=== PATIENT | female | born 1965 | race Hispanic/Latino ===

== ENCOUNTER 2021-09-14 22:13 | Emergency (ER) | payer BC, OTHER ==
[2021-09-14 23:07] LABS: Absolute Lymphocytes (CBC) 3.7 K/uL (0.7-4.9); Basophils % 0.5 % (0-1.3); Hematocrit 40.1 % (36.0-45.0); Lymphocytes % 29.2 % (15.3-44.8); MPV 9.5 fL (7.6-11.3); RBC Red Blood Cell Count 5.45 M/uL (3.86-4.86)
[2021-09-14 23:08] LABS: Protime INR 0.99
[2021-09-14 23:29] LABS: ALT/SGPT 40 U/L (12-78); AST/SGOT 26 U/L (15-37); Albumin 3.9 g/dL (3.4-5.0); Alkaline Phosphatase 114 U/L (45-117); BUN Blood Urea Nitrogen 14 mg/dL (7-18); Bicarbonate 25 mmol/L (21-32); Bilirubin Direct < 0.1 mg/dL (0-0.2); Bilirubin Total 0.3 mg/dL (0.2-1.0); Glucose Level 146 mg/dL (74-106); Magnesium 2.1 mg/dL (1.8-2.4); NT PRO-BNP 49 pg/mL (<125); Potassium 3.4 mmol/L (3.5-5.1); Protein, Total 8.3 g/dL (6.4-8.2); Sodium Level 142 mmol/L (136-145); Troponin (Emerg Dept Use Only) < 0.02 ng/mL (0.0-0.045)
[2021-09-15] MEDS ORDERED: ACETAMINOPHEN 500 MG TAB ONE (00:10)
--- NOTE | 2021-09-15 00:16 | EDPHYS ---
Physician Documentation [facility] Name: Jacklyn Can Age: 56 yrs Sex: Female : 1965 Arrival Date: 09/14/2021 Time: 22:15 Bed 18 Private MD: ED Physician Blake Rodgers HPI: 09/14 23:04 This 56 yrs old Female presents to ER via Ambulatory with complaints of High kb Blood Pressure. 23:04 The patient has elevated blood pressure and discovered this at home, with a home kb device. Onset: The symptoms/episode began/occurred yesterday. Associated signs and symptoms: Pertinent positives: headache, nausea, Pertinent negatives: chest pain, dizziness, dyspnea, lightheadedness, visual changes, vomiting, weakness. Severity of symptoms: At its worst the blood pressure was 190 mm Hg, in the emergency department the blood pressure is unchanged. The patient has not experienced similar symptoms in the past. The patient has not recently seen a physician. Pt reports headache, nausea and high blood pressure since yesterday. Pt has a history of hypertension and was prescribed losartan 50mg daily. States she stopped taking it in May, but took it in the morning and evening yesterday . 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 - Social history:: Smoking status: Patient denies any tobacco usage or history of. ROS: 23:04 Constitutional: Negative for fever, chills, and weight loss. kb 23:04 Abdomen/GI: Positive for nausea. 23:04 Neuro: Positive for headache. 23:04 All other systems are negative. Exam: 22:56 ECG was reviewed by the Attending Physician. kb 23:04 Constitutional: This is a well developed, well nourished patient who is awake, alert, kb and in no acute distress. Head/Face: Normocephalic, atraumatic. ENT: Moist Mucous membranes Cardiovascular: Regular rate and rhythm with a normal S1 and S2. No gallops, murmurs, or rubs. No pulse deficits. Respiratory: Respirations even and unlabored. No increased work of breathing, no retractions or nasal flaring. Skin: Warm, dry with normal turgor. Normal color. MS/ Extremity: Pulses equal, no cyanosis. Neurovascular intact. Full, normal range of motion. Neuro: Awake and alert, GCS 15, oriented to person, place, time, and situation. Moves all extremities. Normal gait. Psych: Awake, alert, with orientation to person, place and time. Behavior, mood, and affect are within normal limits. Vital Signs: 22:45 BP 188 / 96; Pulse 97; Resp 20; Pulse Ox 97% ; Pain 8/10; dc2 22:47 BP 195 / 95; Pulse 89; Resp 18; Temp 98.4; Pulse Ox 100% on R/A; Weight 68.04 kg; wg Height 5 ft. 0 in. (152.40 cm); Pain 7/10; 23:15 BP 159 / 98; Pulse 72; Resp 18; Pulse Ox 100% ; Pain 8/10; dc2 23:45 BP 172 / 83; Pulse 94; Resp 18; Pulse Ox 99% ; Pain 8/10; dc2 09/15 00:23 BP 154 / 86; Pulse 84; Resp 17; Temp 98.0; Pulse Ox 99% on R/A; Pain 4/10; dc2 09/14 22:47 Body Mass Index 29.29 (68.04 kg, 152.40 cm) wg Isrrael Coma Score: 09/14 22:45 Eye Response: spontaneous(4). Verbal Response: oriented(5). Motor Response: obeys dc2 commands(6). Total: 15. MDM: 22:40 Patient medically screened. kb 23:05 Data reviewed: vital signs, nurses notes. Data interpreted: Pulse oximetry: on room air kb is 100 %. Interpretation: normal. 09/15 00:15 Counseling: I had a detailed discussion with the patient and/or guardian regarding: the kb historical points, exam findings, and any diagnostic results supporting the discharge/admit diagnosis, lab results, radiology results, the need for outpatient follow up, a family practitioner, to return to the emergency department if symptoms worsen or persist or if there are any questions or concerns that arise at home. 09/14 22:49 Order name: Basic Metabolic Panel kb 09/14 22:49 Order name: CBC with Diff kb 09/14 22:49 Order name: LFT's; Complete Time: 23:30 kb 09/14 22:49 Order name: Magnesium; Complete Time: 23:30 kb 09/14 22:49 Order name: NT PRO-BNP; Complete Time: 23:30 kb 09/14 22:49 Order name: PT-INR; Complete Time: 23:11 kb 09/14 22:49 Order name: CT Head Brain wo Cont kb 09/14 22:49 Order name: Troponin (emerg Dept Use Only); Complete Time: 23:30 kb 09/14 22:49 Order name: XRAY Chest (1 view) kb 09/14 22:49 Order name: EKG; Complete Time: 22:50 kb 09/14 22:49 Order name: Cardiac monitoring; Complete Time: 22:56 kb 09/14 22:49 Order name: Basic Metabolic Panel; Complete Time: 23:30 EDMS 09/14 22:49 Order name: CBC with Automated Diff; Complete Time: 23:11 EDMS 09/14 22:49 Order name: EKG - Nurse/Tech; Complete Time: 22:56 kb 09/14 22:49 Order name: IV Saline Lock; Complete Time: 22:56 kb 09/14 22:49 Order name: Labs collected and sent; Complete Time: 22:56 kb 09/14 22:49 Order name: O2 Per Protocol; Complete Time: 22:56 kb 09/14 22:49 Order name: O2 Sat Monitoring; Complete Time: 22:56 kb EC/22 22:56 Rate is 87 beats/min. Rhythm is regular. QRS [place] is Normal. OK interval is normal at kb 128 msec. QRS interval is normal at 82 msec. QT interval is normal at 356 msec. Administered Medications: 23:45 Drug: Tylenol 1000 mg Route: PO; dc2 09/15 00:22 Follow up: Response: Pain is decreased dc2 Disposition: 06:51 Co-signature as Attending Physician, Blake Rodgers MD. [email or web address] Disposition Summary: 09/15/21 00:15 Discharge Ordered Location: Home kb Condition: Stable kb Diagnosis - Essential (primary) hypertension kb Followup: kb - With: Emergency Department - When: As needed - Reason: Worsening of condition Followup: kb - With: Private Physician - When: 2 - 3 days - Reason: Recheck today's complaints, Continuance of care, Re-evaluation by your physician Discharge Instructions: - Discharge Summary Sheet kb - Hypertension, Adult, [id number] kb - How to Take Your Blood Pressure, [id number] kb - Managing Your Hypertension kb Forms: - Medication Reconciliation Form kb - Thank You Letter kb - Antibiotic Education kb - Prescription Opioid Use kb Signatures: Dispatcher [employer] EDLeonie Meredith, THERONC DANIEL-Blake Nixon MD MD mh7 Bowen Kaplan RN Mary Lou Jones RN RN dc2
--- NOTE | 2021-09-15 00:16 | ER ---
Nurse's Notes [facility] Name: Jacklyn Can Age: 56 yrs Sex: Female : 1965 Arrival Date: 09/14/2021 Time: 22:15 Bed 18 Private MD: Diagnosis: Essential (primary) hypertension Presentation: 09/14 22:47 Chief complaint: Patient states: Pt states she developed a headache yesterday afternoon wg while at rest. Pt states she also had nausea but no vomiting. Pt states she has a hx of htn and was prescribed Losartin but hasn't been taking for several months until yesterday when she developed a headache, HTN and nausea. Pt states she was on a trip to [place] 2 weeks ago and seems anxious about that trip for some reason. Pt does seem anxious during triage. Pt denies any other pains, SOB, dizziness, etc. Coronavirus screen: Vaccine status: Patient reports receiving the 2nd dose of the covid vaccine. Ebola Screen: Patient negative for fever greater than or equal to 101.5 degrees Fahrenheit, and additional compatible Ebola Virus Disease symptoms Patient denies exposure to infectious person. Patient denies travel to an Ebola-affected area in the 21 days before illness onset. No symptoms or risks identified at this time. Initial Sepsis Screen: Does the patient meet any 2 criteria? No. Patient's initial sepsis screen is negative. Does the patient have a suspected source of infection? No. Patient's initial sepsis screen is negative. Risk Assessment: Do you want to hurt yourself or someone else? Patient reports no desire to harm self or others. Onset of symptoms was September 13, 2021 at 08:00. 22:47 Method Of Arrival: Ambulatory 22:47 Acuity: JOSE 3 wg Triage Assessment: 22:52 General: Appears uncomfortable, well groomed, Behavior is cooperative, appropriate for wg age, anxious. Pain: Complains of pain in Frontal head pain, "also all over" Pain currently is 7 out of 10 on a pain scale. 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 - Social history:: Smoking status: Patient denies any tobacco usage or history of. Screenin:50 Abuse screen: Denies threats or abuse. Denies injuries from another. Nutritional dc2 screening: No deficits noted. Tuberculosis screening: No symptoms or risk factors identified. Never had TB. Possible symptoms: None. Fall Risk None identified. No fall in past 12 months (0 pts). No secondary diagnosis (0 pts). No IV (0 pts). Ambulatory Aid- None/Bed Rest/Nurse Assist (0 pts). Gait- Normal/Bed Rest/Wheelchair (0 pts) Mental Status- Oriented to own ability (0 pts). Total Arriaga Fall Scale indicates No Risk (0-24 pts). Assessment: 22:40 General: Appears in no apparent distress. Behavior is anxious. Pain: Denies pain. dc2 Complains of pain in generalized headache 8/10 Pain does not radiate. Pain currently is 8 out of 10 on a pain scale. Quality of pain is described as aching, Pain began 1 day ago. Is continuous. 22:40 Neuro: No deficits noted. Cardiovascular: No deficits noted. Denies chest pain, dc2 shortness of breath. Respiratory: No deficits noted. Airway is patent Respiratory effort is even, unlabored, Respiratory pattern is regular, Breath sounds are clear bilaterally. GI: Reports nausea. : No signs and/or symptoms were reported regarding the genitourinary system. EENT: No deficits noted. No signs and/or symptoms were reported regarding the EENT system. Derm: No deficits noted. No signs and/or symptoms reported regarding the dermatologic system. Musculoskeletal: No deficits noted. No signs and/or symptoms reported regarding the musculoskeletal system. Vital Signs: 22:45 BP 188 / 96; Pulse 97; Resp 20; Pulse Ox 97% ; Pain 8/10; dc2 22:47 BP 195 / 95; Pulse 89; Resp 18; Temp 98.4; Pulse Ox 100% on R/A; Weight 68.04 kg; wg Height 5 ft. 0 in. (152.40 cm); Pain 7/10; 23:15 BP 159 / 98; Pulse 72; Resp 18; Pulse Ox 100% ; Pain 8/10; dc2 23:45 BP 172 / 83; Pulse 94; Resp 18; Pulse Ox 99% ; Pain 8/10; dc2 10/23 00:23 BP 154 / 86; Pulse 84; Resp 17; Temp 98.0; Pulse Ox 99% on R/A; Pain 4/10; dc2 09/14 22:47 Body Mass Index 29.29 (68.04 kg, 152.40 cm) Ideal Coma Score: 09/14 22:45 Eye Response: spontaneous(4). Verbal Response: oriented(5). Motor Response: obeys dc2 commands(6). Total: 15. ED Course: 22:15 Patient arrived in ED. wm 22:39 Mary Lou Jones, KENA is Primary Nurse. dc2 22:40 Leonie Valero FNP-C is PHCP. kb 22:40 Blake Rodgers MD is Attending Physician. kb 22:43 EKG done, by cardiovascular surgical tech. dc2 22:45 Patient has correct armband on for positive identification. Bed in low position. Call dc2 light in reach. Side rails up X 1. Adult w/ patient. support director on. Pulse ox on. NIBP on. Lights dimmed. 22:52 Triage completed. wg 22:52 Inserted saline lock: 20 gauge in right antecubital area, using aseptic technique. ds4 Blood collected. 22:52 Arm band placed on right wrist. EKG completed in triage. Results shown to MD. wg 22:[address] via wheelchair. dc2 22:57 No provider procedures requiring assistance completed. dc2 23:00 CBC with Automated Diff Sent. dc2 23:00 Basic Metabolic Panel Sent. dc2 23:00 Basic Metabolic Panel Sent. dc2 23:00 CBC with Diff Sent. dc2 23:00 LFT's Sent. dc2 23:01 CT Head Brain wo Cont In Process Unspecified. EDMS 23:01 Magnesium Sent. dc2 23:01 NT PRO-BNP Sent. dc2 23:01 PT-INR Sent. dc2 23:01 Troponin (emerg Dept Use Only) Sent. dc2 23:02 Patient moved back from [address]. dc2 23:38 XRAY Chest (1 view) Sent. dc2 23:39 X-ray(s) taken. dc2 23:44 XRAY Chest (1 view) In Process Unspecified. EDMS 09/15 00:23 IV discontinued, intact, bleeding controlled, No redness/swelling at site. Pressure dc2 dressing applied. Administered Medications: 09/14 23:45 Drug: Tylenol 1000 mg Route: PO; dc2 09/15 00:22 Follow up: Response: Pain is decreased dc2 Outcome: 00:15 Discharge ordered by MD. reagan 00:23 Discharged to home ambulatory. dc2 00:23 Condition: stable 00:23 Discharge instructions given to patient, significant other, Instructed on discharge instructions, follow up and referral plans. Demonstrated understanding of instructions, follow-up care. 00:30 Patient left the ED. dc2 Signatures: Dispatcher [employer] EDMS Leonie Valero, STRATEGIC ACCOUNT DIRECTOR-C STRATEGIC ACCOUNT DIRECTOR-Donnie Carlson ds4 Wen Guzman Liam, KENA Mary Lou Jones RN RN dc2
[2021-09-15 01:10] VITALS: O2SAT 99
[2021-09-15 01:13] VITALS: BP 154/86; TEMP 98
--- NOTE | 2021-09-15 08:48 | RAD REPORT ---
EXAM DESCRIPTION: RAD - Chest Single View - 09/14/2021 11:44 pm CLINICAL HISTORY: htn COMPARISON: CHEST SINGLE VIEW dated 08/10/2009 FINDINGS: Lines: None. Lungs: No evidence of edema or pneumonia. Pleural: No significant pleural effusions or pneumothorax. Cardiac: The heart size is within normal limits. Bones: No acute fractures. Other: IMPRESSION: No acute cardiopulmonary disease.
--- NOTE | 2021-09-16 09:10 | RAD REPORT ---
EXAM DESCRIPTION: CT - Head Brain Wo Cont - 09/15/2021 6:21 am CLINICAL HISTORY: The patient is 56 years old and is Female; HEADACHE TECHNIQUE: Axial computed tomography images of the head/brain without intravenous contrast. Sagitt al and coronal reformatted images were created and reviewed. This CT exam was performed using one o r more of the following dose reduction techniques: automated exposure control, adjustment of the mA and/or kV according to patient size, and/or use of iterative reconstruction technique. COMPARISON: No relevant prior studies available. FINDINGS: BRAIN: Unremarkable. The barrios-white matter differentiation is preserved . No hemorrhag e. No significant white matter disease. No edema. No extra-axial fluid collections. VENTRICLES: Unremarkable. No ventriculomegaly. BONES/JOINTS: No acute fracture. SOFT TISSUES: Unremarkable. SINUSES: Unremarkable as visualized. No acute sinusitis. MASTOID AIR CELLS: Unremarkable as visualized. No mastoid effusion. ORBITS: Unremarkable as visualized. IMPRESSION: No acute intracranial findings. Electronically signed by: Karen Cope MD 09/14/2021 11:23 PM CDT Due to temporary technical issues with the PACS/Fluency reporting system, reports are being signed by the in house radiologists without review as a courtesy to insure prompt reporting. The interpreting radiologist is fully responsible for the content of the report.
== END 2021-09-15 00:30 | disposition home or self-care (01) ==
LOC: ER 22:13
DX: I10 Essential (primary) hypertension (principal)
CPT/HCPCS: 36415; 70450; 71045; 80048; 80076; 83735; 83880; 84484; 85025; 85610; 93005; 99285

== ENCOUNTER 2024-05-28 11:19 | Emergency (ER) | payer OTHER ==
--- OUTSIDE RECORDS SUMMARY | 2024-05-28 11:23 | XMS REPORT | Continuity of Care Document ---
Author Name Unknown Address [address] [place] [address] [facility] thconnect Address [address] [place] [address] Care Team Providers Care Coding Specialist Name Role Phone PCP, PATIENT DOES NOT HAVE A Primary Care Physic nghia Unavailable HEAVENLY JAQUEZ Attending Clinician Unavailable MILVIA MARIA Attending Clinician Unavailable EB BENSON Attending Clinician Unavailable Eb Benson DO Attending Clinician Osmany RN, Louann Mueller Attending Clinician Unavailab le Only, Ang Db Test Attending Clinician UnavailAma Aly Attending Clinician [phone] AMA LA Attending Clinician Unavailable Lab, Adc Fam Pob I Attending Clinician Unavailab le Doctor Unassigned, [place] Attending Clinician U EB Sauceda Admitting Clinician Unavailable Payers Payer Name Policy Type Policy Number Effective Date Expirati on Date Source [employer] MP [employer]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 [id number] 2023 00:00:00 [employer] 2 [id number] 2024 00:00:00 [employer] 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 [id number] 2023 00:00:00 2023 00:00:00 Allergies, Adverse Reactions, Alerts Allergy Name Allergy Type Status Severity Reaction(s) Onset Date Inactive Date Treating Clinician Comments Source NO KNOWN ALLERGIE S Drug Class Active [facility] Social History Social Habit Start Date Stop Date Quantity Comments Source Sexual orientation Earnestine Samuel - External Exposure to SARS-CoV-2 (event) Not sure [facility] Tobacco use and exposure 2024-04-15 00:00:00 2024-04-15 00:00:00 Smokeless tobacco non-user Tracee Lizzie - External Alcoholic beverage intake 2024-04-15 00:00:00 2024-04-15 00:00:00 Lifetime non-drinker (finding) Tracee Samuel - External History of Social function 2024-04-15 00:00:00 2024-04-15 00:00:00 Tracee Samuel - External Sex assigned at 1964 00:00:00 1964 00:00:00 Tracee Samuel - External Smoking Status Start Date Stop Date Source Tobacco smoking consumption unknown [facility] Never smoked tobacco Tracee Samuel - External Medications Ordered Medication Name Filled Medication Name Start Date Stop Date Current Medication? Ordering Clinician Indication Dosage Frequency Signature (SIG) Comments Components Source Losartan Potassium (COZAAR) 50 MG oral Tablet 04-15 14:20: 15 Yes 50mg Take 1 tablet (50 mg total) by mouth daily Pt unsure of mg.. Tracee schulte Pantoprazol e Sodium 40 MG oral Tablet Delayed Response 04-15 00:00: 00 Yes [id number] 40mg Take 1 tablet (40 mg total) by mouth daily. Tracee schulte Sucralfate 1 g oral Tablet 04-15 00:00: 00 Yes [id number] 1g Take 1 tablet (1 g total) by mouth 4 times daily Before meals and at bedtime.. Tracee schulte iopamidol (ISOVUE 370-500 mL) injection 65 mL 04-11 06:30: 00 04-11 06:30 :00 No [id number] 65mL 65 mL, Intravenou s, ONCE, 1 dose, On 04/11/24 at 0130, Routine [facility] pantoprazol e 40 mg EC tablet 04-11 00:00: 00 04-11 00:00 :00 Yes [id number] 40mg Take 1 tablet by mouth in the morning. [facility] sucralfate 1 gram tablet 04-11 00:00: 00 04-11 00:00 :00 Yes [id number] 1g Take 1 tablet by mouth before meals and at bedtime. [facility] dicyclomine (BENTYL) 10 mg capsule 04-11 00:00: 00 04-11 00:00 :00 Yes [id number] 10mg Take 1 capsule by mouth every 8 (eight) hours as needed for Abdominal pain. [facility] ondansetron 4 mg disintegrat ing tablet 04-11 00:00: 00 04-11 00:00 :00 Yes [id number] 4mg Take 1 tablet by mouth every 8 (eight) hours as needed for Nausea and Vomiting (N/V). [facility] Vital Signs Vital Name Observation Time Observation Value Comments S ource Systolic blood pressure 2024-04-15 19:18:00 124 mm[Hg] Tracee Armasybo ld - External Diastolic blood pressure 2024-04-15 19:18:00 72 mm[Hg] Tracee Barrigao ld - External Heart rate 2024-04-15 19:18:00 76 /min Greta beavers ariabrea - External Body temperature 2024-04-15 19:18:00 36.78 Shayna Tracee Samuel - External Respiratory rate 2024-04-15 19:18:00 16 /min Tracee Samuel - External Body height 2024-04-15 19:18:00 149.9 cm Kady Samuel - External Body weight 2024-04-15 19:18:00 66.316 kg Kady banda Seybold - External BMI 2024-04-15 19:18:00 29.53 kg/m2 Kady banda Seybold - External Heart rate 2024-04-11 07:26:00 79 /min [facility] Body temperature 2024-04-11 07:26:00 36.83 Shayna [facility] Oxygen saturation in Arterial blood by Pulse oximetry 2024-04-11 07:26:00 95 /min [facility] Systolic blood pressure 2024-04-11 07:00:00 163 mm[Hg] [facility] Diastolic blood pressure 2024-04-11 07:00:00 94 mm[Hg] Hollister o [facility] Respiratory rate 2024-04-11 06:00:00 18 /min [facility] Body height 2024-04-11 04:08:00 149.9 cm [facility] Body weight 2024-04-11 04:08:00 63.504 kg [facility] BMI 2024-04-11 04:08:00 28.28 kg/m2 [facility] Procedures Procedure Date / Time Performed Performing Clinicia n Source URINALYSIS 2024-04-11 05:54:00 Eb Benson [facility] ABDOMEN PELVIS W CONTRAST 2024-04-11 05:32:52 Eb Benson [facility] LIPASE 2024-04-11 04:20:00 Eb Benson [facility] COMP. METABOLIC PANEL ([id number]) 2024-04-11 04:20:00 Eb Benson [facility] CBC WITH DIFF 2024-04-11 04:20:00 Eb Benson [facility] Encounters Start Date/Time End Date/Time Encounter Type Admission Type Attending Clinicians Care Facility Care Department Encounter ID Source 2024-09-14 16:15:00 2024-09-14 16:15:00 Outpatient HEAVENLY JAQUEZ [id number] Tracee Samuel 2024-04-15 14:00:00 2024-04-15 14:00:00 Outpatient MILVIA MARIA [id number] Tracee Samuel 2024-04-10 23:00:00 2024-04-11 02:29:00 Emergency X EB BENSON [facility] ERT [id number] [facility] 2024-04-10 23:00:00 2024-04-11 02:29:00 Emergency Eb Benson [facility] 1.2.840.114 350.1.13.10 4.2.7.2.686 [id number] [facility] 2021-12-28 00:00:00 2021-12-28 00:00:00 Letter (Out) Louann Ceron [facility] 1.20.114 350.1.13.10 4.2.7.2.686 [id number] [facility] 2021-12-27 16:15:00 2021-12-27 16:30:00 Laboratory Only Only, Ang Db Test Abhinav [facility] PEDRITO?[facility] 1.0.114 350.1.13.10 4.2.7.2.686 [id number] [facility] 2021-12-27 16:15:00 2021-12-27 16:21:39 Outpatient R ABHINAV [facility] [id number] [facility] 2021-03-04 16:02:41 2021-03-04 16:22:41 Laboratory Only Lab, Adc Fam Pob I Abhinav [facility] 1.114 350.1.13.10 4.2.7.2.686 [id number] [facility] 2021-03-04 16:00:00 2021-03-04 16:00:00 Outpatient R ABHINAV [facility] [id number] [facility] 2021-03-04 00:00:00 2021-03-04 00:00:00 Letter (Out) Doctor Unassigned, [place] [facility] 1.20.114 350.1.13.10 4.2.7.2.686 [id number] [facility] 2021-03-04 00:00:00 2021-03-04 00:00:00 Letter (Out) Doctor Unassigned, [place] [facility] 1.2840.114 350.1.13.10 4.2.7.2.686 [id number] [facility] Results Test Description Test Time Test Comments Results Resul t Comments Source CT ABDOMEN PELVIS W CONTRAST 2024-03-24 9 06:54:57 Exam: CT Abdomen and Pelvis with contrast, 04/10/2024 11:15 PM. Ordering Physician: EB BENSON. History: Abdominal abscess/infection suspected . Comparison: None. Technique: CT abdomen and pelvis was obtained with intravenous contrast. CTwas performed according to ALARA (As Low As Reasonably Achievable). Technical Quality: Adequate. Findings: LOWER CHEST:Mild bibasilar atelectasis. ABDOMEN/PELVIS:Liver : Hepatic steatosis. Small calcified granuloma in the right hepaticlobe.Gallblad uma/biliary: Postcholecystectomy. No biliary ductal dilation.Pancreas: Normal.Spleen: Normal. Adrenal glands: Normal.Kidneys and ureters: Symmetric enhancement of the kidneys. No stone orhydronephrosis..Bl adder: Normal.Reproductive organs: Normal for age. Stomach/bowel: No bowel obstruction. No bowel wall thickening. Normalappendix. Lymph nodes: No lymphadenopathy.Geovanna toneum: No organized fluid collection or free air.Vessels: Atherosclerosis without aneurysm. MUSCULOSKELETAL:Bone s: No acute osseous abnormality.Soft tissues: [facility]able. [facility] ([id number][facility]2024-04-11 05:11:19* Test Item Value Reference Range Interpretation Comme nts NA (test code = 4047921527) 140 mmol/L 135-145 K (test code = 2539035761) 3.8 mmol/L 3.5-5.0 CL (test code = 2166606951) 106 mmol/L 98-108 CO2 TOTAL (test code = 6979724617) 27 mmol/L 23-31 AGAP (test code = 6473310626) 7 2-16 BUN (test code = 0966587135) 13 mg/dL 7-23 GLUCOSE (test code = 5028457211) 117 mg/dL 70-110 H CREATININE (test code = 2160-0) 0.70 mg/dL 0.50-1.04 TOTAL BILI (test code = 1958111368) 0.6 mg/dL 0.1-1.1 CALCIUM (test code = 9754020318) 9.4 mg/dL 8.6-10.6 T PROTEIN (test code = 6187931016) 8.6 g/dL 6.3-8.2 H ALBUMIN (test code = 9362121747) 4.6 g/dL 3.5-5.0 ALK PHOS (test code = 1025495009) 154 U/L 34-122 H ALTv (test code = 1742-6) 53 U/L 5-35 H AST(SGOT) (test code = 2187213319) 44 U/L 13-40 H eGFR (test code = 13540-2) 100.4 mL/min/1.73m2 CKD-EPI eGFR (2020). Assuming creatinine has been stable day-to-day for at least three months, the eGFR indicates Category G1 (>= 90 mL/min/1.73 m2) Lab Interpretation (test code = 02937-8) [facility]:10[facility]59* Test Item Value Reference Range Interpretation Comme nts LIPASE (test code = 9613394371) 129 U/L 0-220 Lab Interpretation (test cod e = 15240-1) Normal [facility] Notes Date/Time Note Provider Source 2024-04-15 14:19:49 9942-55-88Y91:19:49F ormatting of this note is different from the original.Chief ComplaintPatient presents with[facility] for possible stomach ulcersPatient's ER records in care everywhere.Patient and patient's daughter aware Milvia DICKSON is an Internal Medicine physician and not GI doctor./ [place] will take care of best [place] [address]-2Hfliq OgbkIY8020-14-05S62:24:41Nurse NoteTXT1.2.840.746868.1.13.131.2.7 .2.048675|[id number] for patient bane04562-5Hnepw NoteLNNARRATIVEFormatted C-CDA narrative [id number] LPM7403-12-81N51:24:411.2.840.1143 50.1.72.3.15|1.2.840.654683.1.13.1 31.2.7.2.727879_[id number] [facility] 2024-04-11 02:28:33 6594-21-51F68:28:33F ormatting of this note might be different from the original.Pt given printed and verbal discharge instructions regarding RLQ abd pain., encouraged hydration and bland diet.Prescriptions providedPt verbalized understanding of instructions, pt awake alert oriented, resp reg unlabored, skin w/d, color appropriate for race, moves all ext well,pt encouraged to follow up with pcp.Advised to seek medical attention for new/prolonged/worsening of symptoms.No adverse reaction to meds given in ER noted upon dischargePIV d'cd, dressing to site, catheter in tact.Awake, alert oriented, resp reg unlabored, skin w/d, pt leaving amb with steady gait, in no apparent distress. 56298-7Tvtjkqvcq department OyocSH6975-17-73A97:29:18Emergen department NoteTXT1.2.840.641533.1.13.104.2.7 .2.740825|[id number] for patient jcuj64325-4NwroBGFCTCVDOSMCfhptdsm d C-CDA narrative [id number] D Roman RN[address] Pu[id number] 53NNGJQHOJCKGTLAXBOCOXHC9924-48-32 T02:29:181.2.840.952513.1.72.3.15| 1.2.840.189462.1.13.104.2.7.2.7278 [id number] Hina Goodman RN [facility] 2024-04-10 23:05:29 9271-07-45T80:05:29F ormatting of this note might be different from the original.Pt reports RLQ abdominal pain that radiates to R flank that feels like pressure/swelling. It has been going on for a "couple weeks" now. Reports diarrhea and nausea. 80160-5Cyfllcfeb department Triage bjriYJ3376-23-01C71:06:57[facility] Triage noteTXT1.2.840.982057.1.13.104.2.7 .2.235559|[id number] for patient jtmn91196-2Plkyhbula department NoteLNNARRATIVEFormatted C-CDA narrative text[address] He[id number] 31UOQCYVIYKUEQVTNFXWFIDR1611-12-25 T23:06:571.2.840.811282.1.72.3.15| 1.2.840.632279.1.13.104.2.7.2.7278 [id number] [facility]
[2024-05-28] MEDS ORDERED: ONDANSETRON 4 MG/2 ML VIAL ONE (12:01)
[2024-05-28] MEDS ORDERED: MORPHINE 4 MG/ML SYR ONE (12:02)
[2024-05-28 12:13] LABS: Absolute Basophils 0.1 K/uL (0-0.5); Absolute Eosinophils 0.1 K/uL (0-0.5); Absolute Lymphocytes (CBC) 2.7 K/uL (0.7-4.9); Absolute Monocytes 0.4 K/uL (0.1-1.3); Absolute Neutrophil 4.4 K/uL (1.8-8.0); Basophils % 0.9 % (0-1.3); Eosinophils % 1.8 % (0-4.4); Hematocrit 44.1 % (36.0-45.0); Hemoglobin 14.1 g/dL (12.0-15.0); Lymphocytes % 35.7 % (15.3-44.8); MCH 26.3 pg (27.0-35.0); MCHC 31.9 g/dL (32.0-36.0); MCV 82.5 fL (80-100); MPV 9.2 fL (7.6-11.3); Monocytes % 4.6 % (3.3-12.3); Platelets 224 thou/uL (152-406); RBC Red Blood Cell Count 5.34 M/uL (3.86-4.86); Red Cell Distribution Width 14.7 % (12.1-15.2)
[2024-05-28 12:26] LABS: Specific Gravity 1.021 (1.005-1.030); Urine Bacteria None Seen /HPF (<20); Urine Bilirubin NEGATIVE (Negative); Urine Blood 1+ (Negative); Urine Clarity Turbid (Clear); Urine Color Light-Yellow (Yellow); Urine Culture Reflex Order NOT NEEDED; Urine Glucose NEGATIVE (Negative); Urine Ketones NEGATIVE (Negative); Urine Microscopic Reflex YN ORDER UMIC; Urine Mucus Slight /HPF (None Seen); Urine Nitrite NEGATIVE (Negative); Urine Protein TRACE (Negative); Urine RBC <5 /HPF (None Seen); Urine Urobilinogen Normal (Normal); Urine WBC <5 /HPF (<5); Urine pH 5.5 (5.0-7.0)
[2024-05-28 12:37] LABS: Albumin 4.1 g/dL (3.4-5.0); Anion Gap 7.5 mEq/L (5.0-15.0); Bilirubin Total 0.5 mg/dL (0.2-1.0); Globulin 4.3 g/dL (2.3-3.5); Potassium 3.5 mEq/L (3.5-5.1); Protein, Total 8.4 g/dL (6.4-8.2)
--- NOTE | 2024-05-28 13:02 | RAD REPORT ---
EXAM DESCRIPTION: CT - Abdomen Pelvis W Contrast - 05/28/2024 12:46 pm CLINICAL HISTORY: Abdominal pain COMPARISON: 2016 TECHNIQUE: Computed axial tomography of the abdomen pelvis was obtained. 100 cc Isovue-300 was admin istered intravenously. Oral contrast was not requested which limits evaluation of bowel and appendix All CT scans are performed using dose optimization technique as appropriate and may include automated exposure control or mA/KV adjustment according to patient size. FINDINGS: Cholecystectomy Fatty liver Spleen, pancreas, adrenal and kidneys appear unremarkable. There is no evidence of diverticulitis. Four normal appendix. No adnexal mass IMPRESSION: No acute abnormality is displayed.
--- NOTE | 2024-05-28 13:36 | EDPHYS ---
Physician Documentation [facility] Name: Jacklyn Can Age: 60 yrs Sex: Female : 02/24/1964 Arrival Date: 05/28/2024 Time: 11:19 Bed 5 Private MD: ED Physician Rex Crowell HPI: 05/28 12:04 This 60 yrs old Female presents to ER via Ambulatory with complaints of rn Abdominal Pain. 12:05 The patient presents with abdominal pain right lower quadrant. Onset: The rn symptoms/episode began/occurred 3 month(s) ago. The symptoms do not radiate. Associated signs and symptoms: Pertinent positives: nausea, Pertinent negatives: blood in stools, chest pain, constipation, diarrhea, dysuria, fever. The symptoms are described as achy. Modifying factors: The symptoms are alleviated by nothing, the symptoms are aggravated by touching the area. Severity of pain: At its worst the pain was moderate in the emergency department the pain is unchanged. The patient has experienced similar episodes in the past. Patient reports abdominal pain for 3 to 6 months, right lower quadrant, nonradiating, associated with nausea. No weight loss. No blood in stool. Was initially seen at emergency room in [place] and told either had cancer or ulcers. Was given an appointment in June, did not want to wait so saw specialist in [place]. In [place] she had a colonoscopy and was told she has chronic appendicitis. She was given medication for this but states recently the abdominal pain is getting worse. Came in for evaluation of worsening abdominal pain. Historical: - Allergies: 11:35 No Known Allergies; ll1 - Home Meds: 11:35 losartan 50 mg Oral tab 1 tab once daily [Active]; ll1 - PMHx: 11:35 Hypertensive disorder; ll1 - PSHx: 11:35 Cholecystectomy; Tummy tuck; ll1 - Immunization history:: Adult Immunizations up to date. - Infectious Disease History:: Denies. - Social history:: Smoking status: Patient denies any tobacco usage or history of. - Family history:: not pertinent. - Hospitalizations: : No recent hospitalization is reported. ROS: 12:05 Constitutional: Negative for fever, chills, and weight loss, Cardiovascular: Negative rn for chest pain, palpitations, and edema, Respiratory: Negative for shortness of breath, cough, wheezing, and pleuritic chest pain, Abdomen/GI: Positive for abdominal pain and nausea MS/Extremity: Negative for injury and deformity, Skin: Negative for injury, rash, and discoloration, Neuro: Negative for headache, weakness, numbness, tingling, and seizure, Exam: 12:05 Constitutional: This is a well developed, well nourished patient who is awake, alert, rn and in no acute distress. Ambulatory to room without difficulty or distress. Cardiovascular: Regular rate and rhythm. No pulse deficits. Respiratory: No increased work of breathing, no retractions or nasal flaring. Abdomen/GI: Soft, right lower quadrant tenderness, no rebound, no masses Neuro: Awake and alert, GCS 15 Vital Signs: 11:37 BP 164 / 91; Pulse 80; Resp 16; Temp 98.2; Pulse Ox 97% on R/A; Weight 65.77 kg; Height ll1 4 ft. 11 in. ; Pain 7/10; 12:29 BP 162 / 83; Pulse 71; Resp 18; Pulse Ox 96% on R/A; ph 13:30 BP 155 / 74; Pulse 64; Resp 18; Pulse Ox 97% on R/A; ph 11:37 Body Mass Index 29.29 (65.77 kg, 149.86 cm) ll1 11:37 Pain Scale: Adult ll1 MDM: 11:39 Patient medically screened. rn 13:33 Differential diagnosis: appendicitis, bowel obstruction, diverticulitis, gastritis, rn gastroesophageal reflux disease, non-specific abd pain, pancreatitis, Peptic Ulcer Disease, Perf. Duodenal Ulcer, Perf. Gastric Ulcer, Ureterolithiasis. Data reviewed: vital signs, nurses notes, lab test result(s), radiologic studies, CT scan, and as a result, I will discharge patient. Care significantly affected by the following chronic conditions: Chronic abdominal pain. Counseling: I had a detailed discussion with the patient and/or guardian regarding the historical points, exam findings, and any diagnostic results supporting the discharge/admit diagnosis, lab results, radiology results, the need for outpatient follow up, to return to the emergency department if symptoms worsen or persist or if there are any questions or concerns that arise at home. Special discussion: Based on the patient's Hx, exam, and Dx evaluation, there is no indication for emergent surgery or inpatient Tx. It is understood by the patient/guardian that if the Sx's persist or worsen they need to return immediately for re-evaluation. I discussed with the patient/guardian in detail that at this point there is no indication for admission to the hospital. It is understood, however, that if the symptoms persist or worsen the patient needs to return immediately for re-evaluation. ED course: No acute findings and workup today. Patient with pain 3 to 6 months, has been prescribed antacid medication including Protonix and sucralfate, but not taking them. Given lack of findings and workup today recommend GI follow-up for upper endoscopy as she has only had colonoscopy in the past and recommend taking the antacid medication as prescribed. I have personally reviewed all of the results, including but not limited to blood tests and imaging deemed necessary to safely discharge this patient at this time. All results given to and printed out for patient. I personally went over all the results with the patient and answered all questions. Patient will follow-up with PCP and or specialist as discussed. Return precautions given and understood.. 05/28 11:40 Order name: CBC with Diff; Complete Time: 13: rn 05/28 11:40 Order name: CMP; Complete Time: 13: rn 05/28 11:40 Order name: Lipase; Complete Time: 13:06 rn 05/28 11:40 Order name: Urinalysis w/ reflexes; Complete Time: 13:06 rn 05/28 11:40 Order name: CT Abd/Pelvis - IV Contrast Only; Complete Time: 13:06 rn 05/28 11:40 Order name: IV Saline Lock; Complete Time: 12:00 rn 05/28 11:40 Order name: Labs collected and sent; Complete Time: 11:59 rn Administered Medications: 12:10 Drug: morphine IVP or IV 4 mg IVP once over 4 mins Route: IVP; Infused Over: 4 mins; ph Site: right antecubital; 12:30 Follow up: Response: No adverse reaction; Pain is decreased; RASS: Alert and Calm (0) ph 12:10 Drug: Ondansetron IVP 4 mg IVP once; over 2 minutes Route: IVP; Site: right antecubital;ph 12:30 Follow up: Response: No adverse reaction ph 13:55 Drug: GI Cocktail without - (Maalox PO 30 ml, Lidocaine Mucous Membrane 2 % 15 ph ml) PO once Route: PO; 14:10 Follow up: Response: No adverse reaction ph 13:55 Drug: Famotidine IVP 20 mg IVP once; dilute with 10 mL 0.9% NaCl; give over 2 minutes ph Route: IVP; Site: right antecubital; 14:10 Follow up: Response: No adverse reaction ph Disposition Summary: 05/28/24 13:35 Discharge Ordered Notes: Location: Home rn Problem: an ongoing problem rn Symptoms: have improved rn Condition: Stable rn Diagnosis - Abdominal pain, unspecified rn Followup: rn - With: Fawad Gibson MD - When: As needed - Reason: Recheck today's complaints, Re-evaluation by your physician Discharge Instructions: - Discharge Summary Sheet rn - Abdominal Pain, Adult rn Forms: - Medication Reconciliation Form rn - Antibiotic rn clinical - Prescription Opioid Use rn - Patient Portal Instructions rn - Leadership Thank You Letter rn Signatures: Dispatcher [employer] Rex Lainez MD MD rn Hall, Patricia, RN RN ph Lewis, Lynsay RN RN [facility]
--- NOTE | 2024-05-28 13:36 | ER ---
Nurse's Notes [facility] Name: Jacklyn Can Age: 60 yrs Sex: Female : 02/24/1964 Arrival Date: 05/28/2024 Time: 11:19 Bed 5 Private MD: Diagnosis: Abdominal pain, unspecified Presentation: 05/28 11:37 Chief complaint: Patient states: Continued abdominal pain for 3 months. Seen at [address], then in [place]. + N/V and feet swelling. Coronavirus screen: Client indicates they have traveled out of the [place] in the last 14 days. Client traveled to: [place] At this time, the client does not indicate any symptoms associated with coronavirus-19. Ebola Screen: Patient denies travel to an Ebola-affected area in the 21 days before illness onset. Initial Sepsis Screen: Does the patient meet any 2 criteria? No. Patient's initial sepsis screen is negative. Does the patient have a suspected source of infection? No. Patient's initial sepsis screen is negative. Risk Assessment: Do you want to hurt yourself or someone else? Patient reports no desire to harm self or others. Onset of symptoms was February 27, 2024. 11:37 Method Of Arrival: Ambulatory [facility] 11:37 Acuity: JOSE 3 ll1 Triage Assessment: 11:37 General: Appears uncomfortable, Behavior is calm, cooperative, appropriate for age. ll1 Pain: Complains of pain in abdomen Pain currently is 7 out of 10 on a pain scale. Quality of pain is described as aching, crampy. Neuro: No deficits noted. Cardiovascular: No deficits noted. GI: Reports lower abdominal pain, upper abdominal pain, bloating, cramping, nausea, vomiting. Historical: - Allergies: 11:35 No Known Allergies; ll1 - Home Meds: 11:35 losartan 50 mg Oral tab 1 tab once daily [Active]; ll1 - PMHx: 11:35 Hypertensive disorder; ll1 - PSHx: 11:35 Cholecystectomy; Tummy tuck; ll1 - Immunization history:: Adult Immunizations up to date. - Infectious Disease History:: Denies. - Social history:: Smoking status: Patient denies any tobacco usage or history of. - Family history:: not pertinent. - Hospitalizations: : No recent hospitalization is reported. Screenin:46 [facility] ED Fall Risk Assessment (Adult) History of falling in the last 3 months, ph including since admission No falls in past 3 months (0 pts) Confusion or Disorientation No (0 pts) Intoxicated or Sedated No (0 pts) Impaired Gait No (0 pts) Mobility Assist Device Used No (0 pt) Altered Elimination No (0 pt) Score/Fall Risk Level 0 - 2 = Low Risk Oriented to surroundings, Maintained a safe environment, Hourly rounding (assess needs \T\ fall precautionary measures) done. Abuse screen: Denies threats or abuse. Denies injuries from another. Nutritional screening: No deficits noted. Tuberculosis screening: No symptoms or risk factors identified. 12:15 [facility] ED Fall Risk Assessment (Adult) History of falling in the last 3 months, ph including since admission No falls in past 3 months (0 pts) Confusion or Disorientation No (0 pts) Intoxicated or Sedated Yes (3 pts) Impaired Gait No (0 pts) Mobility Assist Device Used No (0 pt) Altered Elimination No (0 pt) Score/Fall Risk Level 3 or more points = High Risk Oriented to surroundings, Maintained a safe environment, Hourly rounding (assess needs \T\ fall precautionary measures) done. Assessment: 12:22 General: Appears in no apparent distress. well groomed, Behavior is calm, cooperative, ph appropriate for age. Pain: Complains of pain in right lower quadrant. Neuro: Level of Consciousness is awake, alert, obeys commands, Oriented to person, place, time, situation. Cardiovascular: Capillary refill < 3 seconds in bilateral fingers Patient's skin is warm and dry. Respiratory: Airway is patent Respiratory effort is even, unlabored, Respiratory pattern is regular, symmetrical. GI: Reports lower abdominal pain, nausea, Patient currently denies vomiting. : No signs and/or symptoms were reported regarding the genitourinary system. Derm: Skin is pink, warm \T\ dry. Vital Signs: 11:37 BP 164 / 91; Pulse 80; Resp 16; Temp 98.2; Pulse Ox 97% on R/A; Weight 65.77 kg; Height ll1 4 ft. 11 in. ; Pain 7/10; 12:29 BP 162 / 83; Pulse 71; Resp 18; Pulse Ox 96% on R/A; ph 13:30 BP 155 / 74; Pulse 64; Resp 18; Pulse Ox 97% on R/A; ph 11:37 Body Mass Index 29.29 (65.77 kg, 149.86 cm) ll1 11:37 Pain Scale: Adult ll1 ED Course: 11:27 Patient arrived in ED. mg5 11:36 Arm band placed on Patient placed in an exam room, on a stretcher. ll1 11:38 Triage completed. ll1 11:39 Rex Crowell MD is Attending Physician. rn 11:46 Eugenie Stoddard RN is Primary Nurse. ph 11:55 Initial lab(s) drawn, by me, sent to lab. Urine collected: clean catch specimen, magdiel ph colored. Inserted saline lock: 20 gauge in right antecubital area, using aseptic technique. Blood collected. 12:00 Lipase Sent. hb 12:00 CMP Sent. hb 12:00 CBC with Diff Sent. hb 12:23 Patient has correct armband on for positive identification. Placed in gown. Bed in low ph position. Call light in reach. Side rails up X 1. Pulse ox on. NIBP on. Door closed. Noise minimized. Warm blanket given. 12:48 CT Abd/Pelvis - IV Contrast Only In Process Unspecified. EDMS 13:35 Fawad Gibson MD is Referral Physician. rn 14:05 No provider procedures requiring assistance completed. IV discontinued, intact, ph bleeding controlled, No redness/swelling at site. Pressure dressing applied. Administered Medications: 12:10 Drug: morphine IVP or IV 4 mg IVP once over 4 mins Route: IVP; Infused Over: 4 mins; ph Site: right antecubital; 12:30 Follow up: Response: No adverse reaction; Pain is decreased; RASS: Alert and Calm (0) ph 12:10 Drug: Ondansetron IVP 4 mg IVP once; over 2 minutes Route: IVP; Site: right antecubital;ph 12:30 Follow up: Response: No adverse reaction ph 13:55 Drug: GI Cocktail without - (Maalox PO 30 ml, Lidocaine Mucous Membrane 2 % 15 ph ml) PO once Route: PO; 14:10 Follow up: Response: No adverse reaction ph 13:55 Drug: Famotidine IVP 20 mg IVP once; dilute with 10 mL 0.9% NaCl; give over 2 minutes ph Route: IVP; Site: right antecubital; 14:10 Follow up: Response: No adverse reaction ph Medication: 12:23 VIS not applicable for this client. ph Outcome: 13:35 Discharge ordered by . rn 14:06 Patient left the ED. hb 14:06 Discharged to home ambulatory, with family, ph 14:06 Condition: good 14:06 Discharge instructions given to patient, Instructed on discharge instructions, follow up and referral plans. Demonstrated understanding of instructions, follow-up care, Signatures: Dispatcher [employer] EDMS Rex Crowell MD MD rn Hall, Patricia, RN RN ph Baxter, Heather, RN RN hb Lewis, Lynsay, RN RN [facility] Glenys Naylor 5
[2024-05-28] MEDS ORDERED: FAMOTIDINE 20 MG/2 ML VIAL IV ONE (13:50)
[2024-05-28] MEDS ORDERED: LIDOCAINE VISCOUS 2% 10ML ORAL SOLN ONE (13:50)
[2024-05-28] MEDS ORDERED: MAGNES/ALUMIN/SIMET 30ML UCUP ONE (13:50)
[2024-05-28 14:39] VITALS: BP 155/74; TEMP 98.2; O2SAT 97
== END 2024-05-28 14:06 | disposition home or self-care (01) ==
LOC: ER 11:19
DX: R10.31 Right lower quadrant pain (principal)
CPT/HCPCS: 85025; 81001; 36415; 83690; 80053; 74177; 96375; 96374; 99284; Q9967; J2405